=== PATIENT | female | born 1950 | race Caucasian/White ===

== ENCOUNTER 2024-05-15 11:33 | Emergency (ER) | payer MEDICARE, SELFPAY ==
[2024-05-15 11:49] VITALS: BP 147/74; PULSE 104; RESP 16; TEMP 37.3; O2SAT 99
--- NOTE | 2024-05-15 11:58 | ED_ITS ---
HPI - URI/Sore Throat General Chief Complaint: Upper Respiratory Infection Stated Complaint: flu like symptoms Time Seen by Provider: 05/15/24 11:51 Source: patient and RN notes reviewed Mode of arrival: ambulatory Limitations: no limitations History of Present Illness HPI Narrative: Patient presents today with a 2 day history of cough leading to posttussive vomiting, copious postnasal drainage, rhinorrhea, fever with a T-max of 100.4?. Denies sore throat, shortness of breath. States is at home with similar symptoms. She has tried some Mucinex without much relief. No history of asthma or COPD. She is a nonsmoker. She has been vaccinated for influenza and COVID this season. Related Data Home Medications ?Medication ?Instructions ?Recorded ?Confirmed ?Last Taken ?Type aspirin 81 mg tablet,delayed 81 mg PO DAILY 05/15/24 05/15/24 Unknown History release (Adult Low Dose Aspirin) dexlansoprazole 60 mg 60 mg PO DAILY 05/15/24 05/15/24 Unknown History capsule,biphase delayed release (Dexilant) dorzolamide 2 % eye drops 1 drp EACH EYE BID 05/15/24 05/15/24 Unknown History evolocumab 140 mg/mL subcutaneous 140 mg subcut ONCE 05/15/24 05/15/24 Unknown History pen injector (Repstephane Shannon) latanoprost 0.005 % eye drops 1 drp EACH EYE DAILY 05/15/24 05/15/24 Unknown History levothyroxine 75 mcg tablet 75 mcg PO DAILY 05/15/24 05/15/24 Unknown History (Euthyrox) metoprolol succinate 50 mg capsule 50 mg PO DAILY 05/15/24 05/15/24 Unknown History sprinkle, ext. release 24 hr ramipril 10 mg capsule 10 mg PO BID 05/15/24 05/15/24 Unknown History sertraline 50 mg tablet 50 mg PO DAILY 05/15/24 05/15/24 Unknown History ticagrelor 90 mg tablet (Brilinta) 90 mg PO Q12H 05/15/24 05/15/24 Unknown History Allergies Allergy/AdvReac Type Severity Reaction Status Date / Time Sulfa (Sulfonamide Allergy Mild Rash Verified 05/15/24 11:46 Antibiotics) Review of Systems Review of Systems: CONSTITUTIONAL: Denies body aches, chills, or sweats.+ fever EYES: Denies visual changes, redness, or discharge. ENT: Denies congestion, sore throat, or otalgia.+ rhinorrhea, postnasal drip CARDIOVASCULAR: Denies chest pain, palpitations, or edema. RESPIRATORY: Denies dyspnea.+ cough GASTROINTESTINAL: Denies abdominal pain, nausea, vomiting, or diarrhea. GENITOURINARY: Denies dysuria or hematuria. SKIN: Denies rash, itching, or wounds. MUSCULOSKELETAL: Denies back pain, joint pain, or myalgia. NEUROLOGIC: Denies headache, numbness, tingling, or weakness. PSYCH: Denies depression or anxiety. PMFSH Comments At time of signature, I have reviewed and agree with nursing past medical, surgical, social and family history unless otherwise noted. Please see nursing chart for further information. There is no relevant family history pertinent to the presenting complaint Exam Narrative: GENERAL: Mildly ill-appearing, well-nourished, and in no acute distress. HEAD: Normocephalic, atraumatic. EYES: EOMI. No redness or drainage. Conjunctivae normal. ENT: Mucous membranes pink and moist. Nares congested rhinorrhea. TMs normal bilaterally. Throat normal. Uvula midline. NECK: Normal AROM. Supple. No lymphadenopathy. CHEST: No respiratory distress. Clear to auscultation. HEART: Regular rate and rhythm. No murmur appreciated. EXTREMITIES: Normal range of motion. No edema. SKIN: Warm, dry, no rash. Capillary refill normal. Normal skin turgor. NEURO: No focal deficits. Alert and oriented x3. Gait steady. PSYCH: Normal affect. No signs of depression or anxiety. Course Course Level of Care: Express Care Visit Vital Signs Vital signs: Vital Signs Temperature 99.2 F 05/15/24 11:49 Pulse Rate 104 H 05/15/24 11:49 Respiratory Rate 16 05/15/24 11:49 Blood Pressure 147/74 H 05/15/24 11:49 Pulse Oximetry 99 05/15/24 11:49 Temperature 99.2 F 05/15/24 11:49 Pulse Rate 104 H 05/15/24 11:49 Respiratory Rate 16 05/15/24 11:49 Blood Pressure 147/74 H 05/15/24 11:49 Pulse Oximetry 99 05/15/24 11:49 Reviewed MDM - URI/Sore Throat MDM Narrative Medical decision making narrative: Influenza negative, COVID positive. Patient is not eligible to take Paxlovid due to her Brilinta. Discussed options for [id number] medications as well as duration of illness, anticipatory guidance, and ED precautions. Differential Diagnosis Differential diagnosis: Likely upper respiratory infection, viral infection, bronchitis, influenza and other (COVID-19) Lab Data Attestation: I reviewed the patient's lab results. Labs: Lab Results 05/15/24 Range/Units 12:15 POC Influenza A Ag Negative (Negative) POC Influenza B Ag Negative (Negative) POC SARS CoV-2 Ag Positive (Negative) Critical Care Time Critical Care Time Critical Care Time: No Discharge Plan Discharge Clinical Impression: COVID-19 Patient Disposition: Home, Self-Care Condition: Stable Instructions: COVID-19 (Coronavirus Disease 2019) (ED) Additional Instructions: You have tested positive for COVID-19. Please take [id number] medications such as Mucinex, Flonase, Tylenol to help with your symptoms. Follow-up with your PCP each in 1 week if symptoms are not improving. As discussed, please go to the ER immediately if symptoms worsen to include shortness of breath, chest pain. Your blood pressure was elevated above 120/80 today at Urgent Care. This puts you above the threshold for follow up. Please schedule a followup visit with your personal physician as soon as possible, for further evaluation and treatment. Even blood pressure exceeding 120/80 may indicate pre-hypertension. Patient Language: Guamanian Prescriptions: No Action dorzolamide 2 % drops 1 drp EACH EYE BID Brilinta 90 mg tablet 90 mg PO Q12H ramipril 10 mg capsule 10 mg PO BID dexlansoprazole [Dexilant] 60 mg capsule,biphase delayed releas 60 mg PO DAILY levothyroxine [Euthyrox] 75 mcg tablet 75 mcg PO DAILY metoprolol succinate 50 mg capsule,sprinkle,ER 24hr 50 mg PO DAILY aspirin [Adult Low Dose Aspirin] 81 mg tablet,delayed release (DR/EC) 81 mg PO DAILY sertraline 50 mg tablet 50 mg PO DAILY Repatha SureClick 140 mg/mL pen injector 140 mg subcut ONCE latanoprost 0.005 % drops 1 drp EACH EYE DAILY Follow-up/Referrals: Heladio,Jeromy Becerra [Other] Time of Disposition: 12:23
[2024-05-15 12:17] LABS: EDCOVIDSCREEN Positive (Negative); EDINFLUASCREEN Negative (Negative); EDINFLUBSCREEN Negative (Negative)
== END 2024-05-15 12:27 | disposition home or self-care (01) ==
PROVIDERS: Emergency Provider Nurse Practitioner
DX: U07.1 COVID-19 (principal); Z79.82 Long term (current) use of aspirin; I10 Essential (primary) hypertension; K21.9 Gastro-esophageal reflux disease without esophagitis; E03.9 Hypothyroidism, unspecified; Z95.5 Presence of coronary angioplasty implant and graft
CPT/HCPCS: 87426; 87804; 99202; G0463